=== PATIENT | female | born 1965 | race Caucasian/White ===

== ENCOUNTER 2017-05-09 07:08 | Day surgery (SDC) | payer OTHER, BC, SELFPAY ==
[2017-05-09] VITALS (13 sets, daily range): BP systolic 114–136; BP diastolic 65–88; PULSE 88–103; RESP 16–18; TEMP 36.1–37.1; O2SAT 95–100; BMI 21.4
[2017-05-09 07:44] LABS: Internal QC Validated? YES +Cl - CLEAR BKGD; Pregnancy, Urine Negative Negative
[2017-05-09] MEDS: Phenazopyridine 95 MG Tablet 190 MG PO (08:01)
--- NOTE | 2017-05-09 09:15 | HYST_PTH ---
PATIENT: JOSSELYN ADRIAN [place] [facility] [place][id number] AGE/SX: 51/F ROOM: RE05/09/[address]: Dr. Naina Keenan, MDDOB: 1965 BED: DIS: 05/10/2017 SPEC #: [id number] RECD: 05/09/17 13:20 STATUS: STONEY ALEXA #: [id number] SVETLANA: 05/09/17 09:[address]: Naina Keenan DEPT: SURGICAL PATHOLOGY RECD BY: Moose Mcmullen ENTERED: 05/09/17 13:40 SP TYPE: HYSTERECT SHIKHA DR: Dr. Hafsa Anand MD Tissues: Uterus, NOS Procedures: Surgery Specimen Level V HEADER OPERATION: Hysterectomy, laparoscopic, bilateral salpingectomy, cystoscopy PRE-OP DIAGNOSIS: Uterine fibroid, adenomyosis, nabothian cyst TISSUE SUBMITTED: Uterus, tubes--bilateral MICROSCOPIC DIAGNOSIS Uterus, bilateral fallopian tubes, hysterectomy and bilateral salpingectomy: Cervix ? chronic cystic cervicitis. Endometrium ? weakly proliferative endometrium. Myometrium ? adenomyosis. Bilateral fallopian tubes - no pathologic diagnosis. SJ:baltazar 05/10/17 MICROSCOPIC DESCRIPTION Slides are reviewed. GROSS DESCRIPTION Received in fixative is one container labeled with the patient's name and designated uterus and bilateral tubes. The specimen consists of a hysterectomy specimen consisting of uterus with cervix and attached bilateral fallopian tubes. The uterus with cervix weighs 57 gm and measures 7.5 x 5.5 x 3 cm. The serosal surface is flores, glistening. The external os is circular in contour. The ectocervical mucosa is unremarkable. The endocervical canal measures 2.5 cm in length and the endocervical mucosa is flores, glistening and unremarkable. The triangular endometrial cavity measures 4 cm in length and 1.5 cm in width. The endometrium is flores, glistening without any mass lesion and measures 0.1 cm in thickness. Sections of the uterine wall do not reveal any mass lesion and it measures up to 2 cm in thickness. The right fallopian tube measures 6 cm in length and up to 0.5 cm in diameter. The fimbrial end is identified. Sections reveal unremarkable cut surfaces. The left fallopian tube is similar appearance to right and measures 6 cm in length and up to 0.5 cm in diameter. Shoe Folder sections are submitted in eight cassettes as follows: 1 - anterior cervix, 2 - posterior cervix, 3 & 4 - anterior uterine wall, 5 & 6 - posterior uterine wall, 7 ? right fallopian tube, 8 ? left fallopian tube. / BARRERA:baltazar 05/09/17 TC:5 CPT: 65930
[2017-05-09] MEDS: Bupivacaine Mpf 0.5% 30 ML VIAL (10:31)
[2017-05-09] MEDS: Ketorolac 30 MG/ML Syringe IV (13:08)
--- NOTE | 2017-05-09 13:08 | PCM.OP.BLANK ---
Operative Report Date of Procedure: 05/09/17 Surgeon: Dr. Naina Keenan Pre-Operative Diagnosis: Pelvic pain, abnormal uterine bleeding Post-Operative Diagnosis: same, endometriosis Surgery/Procedure Performed:: total laparoscopic Hysterectomy, Salpingectomy Description of Surgical Findings: endometriotic lesions noted on pelvic side ryan, bladder, and posterior uterus. aircraft maintenance technician: Dr. Le Cueto Drag Out Worker: Bria Groves [id number] Type of Anesthesia:: General Special Medications: 1% Lidocaine with Epinephrine Specimen's removed: uterus, cervix, bilateral tubes Drains: claudio Estimated Blood Loss (mL): 100 Description of Procedure: Patient take to OR and prepped and draped in usual sterile fashion in dorsal lithotomy position with her arms tucked in a neurologically safe and neutral position. The uterus sounded to 7 cm. Vcare uterine manipulator was sutured in place at 3 and 9:00- and claudio was placed. Attention was turned to the abdomen. All port sites were infiltrated with 1% lidocaine before the incisions were made. The anterior abdominal wall was tented up with towel clamps and using a direct entry approach a 5 mm intraumbilical port was placed. Intraperitoneal placement was confirmed with the laparoscope and the pneumoperitoneum was created. The patient was placed in Trendelenburg and 5 mm right and left lower quadrant ports were placed under direct visualization. The bowel was swept away. Ovaries appeared normal. The mesosalpinx starting at fimbriated end were grasped, clamped, sealed and transected with the Ligasure. The round ligaments were divided. The anterior peritoneum was dissected down to create the bladder flap with blunt dissection and the LigaSure. The uterine arteries were isolated, clamped, sealed and cut. There was minimal back bleeding from the uterus. once the bladder flap was taken down and posterior peritoneum was taken down the Colpotomy was performed using the Vcare as a guide. The specimen was freed at all pedicles. Attention was turned to the vaginal portion. the specimen was removed with vcare intact. At this time weighted speculum was placed in posterior fornix of vaginal and allis clamps were used to grasp the cuff. There was bleeding noted on anterior aspect of cuff- this was incorporated into the vaginal cuff closure. the cuff was closed in multiple interrupted figure of eight 0 vicryl sutures. Excellent hemostasis was appreciated. Cystoscopy was performed next. First the Claudio catheter was removed. This the scope was placed bladder was noted to be intact. Both ureteral jets were seen peristalsing. The pneumoperitoneum was recreated. Action the right pelvic sidewall near the edge of the cuff had bleeding. This area was grasped with a Lydna grasper tented up and a Vicryl loop suture was placed around this tissue. The bleeding slowed however upon more inspection there still was some oozing from that area. She was held but bleeding continued. The tissue was pulled away from the edges and attempt at sealing the vessels was performed using the LigaSure. Bleeding continued and at this point FloSeal was placed and pressure was held for a total of 4 minutes. The bleeding was minimal at this time fibrillar and Jefferson were also placed over the vaginal cuff and at the area of concern. Monitor the area after placement and there was no active bleeding noted . The ureters were both seen and peristalsing. Due to the area of the bleeding decision was made to repeat the cystoscopy. Only area of concern was the right ureter which on cystoscopy was seen with good efflux. The skin incisions were closed with skin glue and 3-0 monocryl. The vaginal sweep was completed by me. Grafts/Implants Used: none
--- NOTE | 2017-05-09 15:10 | PCM.PN.BLA ---
Progress Note pt seen at bedside, doing well. pt reports good pain control but has nausea. BP in PACU required hydralazine- is written for home meds- Propanolol. Will check CBC at 4pm and again in AM.
[2017-05-09] MEDS: Ondansetron 4 MG/2 ML Vial IV ×2 (15:31→23:26)
[2017-05-09] MEDS: Lactated Ringers 1,000 ML 125 ML IV (15:31)
[2017-05-09] MEDS: Acetaminophen 500 MG Tablet 1000 MG PO ×2 (15:32→21:08)
[2017-05-09 16:21] LABS: Hematocrit 34.1 % (37-47); Hemoglobin 11.1 g/dl (12.0-15.0); Mean Corp Hgb Conc 32.6 g/gl (32-36); Mean Corpuscular Volume 92.2 fL (81-99); Mean Platelet Vol. 9.6 fl (6.2-12.0); Platelet Count 257 K/mm3 (150-450); RBC Distribution Width CV 13.4 % (11.6-14.6); RBC Distribution Width SD 43.8 fl (35.1-43.9); Scan Indicated on CBC? Y/N NO; White Blood Count 14.1 K/mm3 (4.4-11.0)
--- NOTE | 2017-05-09 21:35 | PCM.DC.AHY ---
Discharge Diet: No Restrictions Discharge Activity: Return to Normal Activity, May Not Drive - while taking narcotic pain medications., May Shower May resume sexual activity in: 6-8 weeks Lifting Restrictions: 20 Call your doctor if your incision/area has: Continuous Slow Oozing, Sudden Increased Bleeding, Increased Pain/ Swelling, Increased Redness, Foul Smelling Discharge Call your doctor if you observe: Fever of 101 or Higher, Inability to urinate, Inability to have a bowel movement, Using more than one pad per hour Cleanse incision/area with: - - you have skin glue over your incision sites- let soap and water run over them and dab dry. Do not pick off skin glue. Allergies/Adverse Reactions: Allergies acetaminophen [From Darvocet-N 100] Allergy (Verified 05/06/17 15:39) Other oxycodone Allergy (Verified 05/06/17 15:39) Other propoxyphene [From Darvocet-N 100] Allergy (Verified 05/06/17 15:39) Other Medications to take at Discharge Bupropion HCl [Wellbutrin Xl] 300 mg PO DAILY 05/06/17 Omeprazole 40 mg PO DAILY 05/06/17 Paroxetine HCl [Paxil] 10 mg PO DAILY 05/06/17 Propranolol HCl [Inderal (Beta Harshal)] 10 mg PO BID 05/06/17 Bupropion HCl [Wellbutrin Xl] 300 mg PO DAILY 05/09/17 Omeprazole [Omeprazole] 40 mg PO DAILY 05/09/17 Paroxetine HCl [Paxil] 10 mg PO DAILY 05/09/17 Propranolol HCl [Inderal (Beta Harshal)] 10 mg PO BID 05/09/17 SimETHICONE [Mylicon] 80 mg PO PCHS tablet 05/09/17 TraMADol [Ultram] 50 mg PO Q6H PRN PRN tablet 05/09/17 Primary Care Physician: Hafsa Anand [Primary Care Provider] - Please Follow Up With: Naina Keenan MD When: as scheduled in 2 weeks
[2017-05-10 04:00] VITALS: BP 139/82; PULSE 97; RESP 16; TEMP 36.6; O2SAT 99
[2017-05-10] MEDS: Acetaminophen 500 MG Tablet 1000 MG PO (06:20)
[2017-05-10] MEDS: Propranolol 10 MG Tablet PO (06:21)
[2017-05-10 07:12] VITALS: O2SAT 96
[2017-05-10 08:09] LABS: Hematocrit 32.6 % (37-47); Hemoglobin 10.6 g/dl (12.0-15.0); Mean Corp Hgb Conc 32.5 g/gl (32-36); Mean Corpuscular Hgb 29.9 pg (27.0-32.0); Mean Corpuscular Volume 92.1 fL (81-99); Mean Platelet Vol. 9.3 fl (6.2-12.0); Platelet Count 244 K/mm3 (150-450); RBC Distribution Width CV 13.6 % (11.6-14.6); RBC Distribution Width SD 45.7 fl (35.1-43.9); Red Blood Count 3.54 M/mm3 (4.2-5.4); White Blood Count 9.9 K/mm3 (4.4-11.0)
[2017-05-10 08:10] LABS: Scan Indicated on CBC? Y/N NO
--- NOTE | 2017-05-10 08:16 | PCM.PN.OB ---
Subjective: pt seen at bedside, doing well. pt reports good pain control. pt denies chest pain, SOB, dizziness, palpitations. - Physical Exam General: Alert, Oriented x3 Abdomen: Soft, Non-Distended, - Extremities: No Calf Tenderness Vital Signs Temp Pulse Resp BP Pulse Ox 97.9 F 97 16 139/82 H 99 05/10/17 04:00 05/10/17 04:00 05/10/17 04:00 05/10/17 04:00 05/10/17 04:00 Oxygen Delivery Method Room Air Weight: 61.9 kg Body Mass Index (BMI) 21.4 Intake and Output for Last 24 Hours 05/08/17 05/09/17 05/10/17 23:59 23:59 23:59 Intake Total 3290 / 3290 740 / 740 Output Total 675 / 675 1300 / 1300 Balance 2615 / 2615 -560 / -560 Laboratory Tests Past 24 Hrs 05/09/18 05/09/17 05/10/17 07:42 15:58 07:44 WBC 14.1 H 9.9 RBC 3.70 L 3.54 L Hgb 11.1 L 10.6 L Hct 34.1 L 32.6 L MCV 92.2 92.1 MCH 30.0 29.9 MCHC 32.6 32.5 RDW 13.4 13.6 RDW Differential 43.8 45.7 H Plt Count 257 244 MPV 9.6 9.3 Blood Type A POSITIVE Antibody Screen NEGATIVE Assessment/Plan POD#1 doing well routine care pain mgmt dc home today labs reviewed.
[2017-05-10 08:59] VITALS: BP 134/88; PULSE 78; RESP 18; TEMP 37.7; O2SAT 99
[2017-05-10 09:08] VITALS: PULSE 78; RESP 18
== END 2017-05-10 08:30 | disposition home or self-care (01) ==
LOC: SDC 07:11 → AC 07:11 → MS3 11:03
PROVIDERS: Anesthesiology; Obstetrics & Gynecology; Family Provider Internal Medicine; PCP Internal Medicine; Visit Provider Obstetrics & Gynecology
PROC: 0UT9FZZ Resection of Uterus, Via Natural or Artificial Opening With Percutaneous Endoscopic Assistance (ICD-10-PCS; CPT 58552; principal; 2017-05-09 08:50)
DX: N72 Inflammatory disease of cervix uteri (principal); N80.0 Endometriosis of uterus; K21.9 Gastro-esophageal reflux disease without esophagitis; F41.9 Anxiety disorder, unspecified; Z85.828 Personal history of other malignant neoplasm of skin; Z79.891 Long term (current) use of opiate analgesic; Z79.899 Other long term (current) drug therapy
CPT/HCPCS: 58552; 36415; 81025; 85027; 86850; 86900; 88307; J7120; J2405